=== PATIENT | female | born 1950 | race Caucasian/White ===

== ENCOUNTER 2016-12-08 19:00 | Emergency (ER) | payer MEDICARE, BC ==
[2016-12-08 19:18] VITALS: RESP 16
[2016-12-08 20:11] LABS: BASOPHILS % (AUTO) 1 % (0-3); EOSINOPHILS % (AUTO) 3 % (0-9); HEMATOCRIT 32 % (35-47); MEAN CORPUSCULAR HGB CONC 34.3 gm/dl (32.0-36.0); MEAN CORPUSCULAR VOLUME 98 fL (81-99); MONOCYTES % (AUTO) 5.4 % (0-12); NEUTROPHILS % (AUTO) 71.4 % (37-80)
[2016-12-08 20:13] VITALS: TEMP 97.6
[2016-12-08 20:33] LABS: ALBUMIN 3.1 gm/dl (3.4-5.0); ALT 39 IU/L (14-63); CALCIUM 8.4 mg/dl (8.5-10.1); GLOM FILT RATE 27 mL/min (>60); POTASSIUM 3.8 mMol/L (3.5-5.1); SODIUM 140 mMol/L (136-145); THYROID STIMULATING HORMONE 3.899 uIU/ml (0.358-3.740)
[2016-12-08] MEDS ORDERED: LABETALOL HYDROCHLORIDE 100 MG TAB PO SCH (20:45)
[2016-12-08 21:42] LABS: BILIRUBIN,URINE NEGATIVE (NEGATIVE); COLOR,URINE Yellow; GLUCOSE, URINE (UA) NEGATIVE (NEGATIVE); KETONES,URINE NEGATIVE (NEGATIVE); LEUKOCYTE ESTERASE ,URINE TRACE (NEGATIVE); NITRATE,URINE NEGATIVE (NEGATIVE); OCCULT BLOOD,URINE NEGATIVE (NEG-TRACE); UROBILINOGEN,URINE 0.2 (0.2-1.0 EU)
[2016-12-08 21:44] LABS: AMPHETAMINES NEGATIVE (NEGATIVE); METHADONE NEGATIVE (NEGATIVE); OPIATES(OP13) NEGATIVE (NEGATIVE); OXYCODONE(OXY) NEGATIVE (NEGATIVE); PROPOXYPHENE(PPX) NEGATIVE (NEGATIVE); TRICYCLIC ANTIDEPRESSANTS NEGATIVE (NEGATIVE)
[2016-12-08 21:51] LABS: APPEARANCE,URINE SLIGHTLY CLOUDY; RBC,URINE 0-1 (0-3AV/HPF)
[2016-12-08 22:06] VITALS: BP 130/77; PULSE 65; O2SAT 100
== END 2016-12-08 22:25 | disposition short-term general hospital (02) | DRG 880 ==
LOC: ED 19:00
DX: R45.851 Suicidal ideations (principal); N18.4 Chronic kidney disease, stage 4 (severe); F32.9 Major depressive disorder, single episode, unspecified; Z87.440 Personal history of urinary (tract) infections; E11.9 Type 2 diabetes mellitus without complications; R10.9 Unspecified abdominal pain; G89.29 Other chronic pain; Z59.8 Other problems related to housing and economic circumstances; Z79.4 Long term (current) use of insulin
CPT/HCPCS: 36415; 80053; 80305; 80307; 81001; 84443; 85025; 87077; 87088; 87186; 99284; 99285

== ENCOUNTER 2017-02-04 10:24 | Emergency (ER) | payer MEDICARE, BC ==
[2017-02-04] MEDS ORDERED: ASPIRIN 81 MG CHEWABLE CTB ONE (10:27)
[2017-02-04] MEDS ORDERED: ASPIRIN 81 MG CHEWABLE CTB PO STA (10:30)
[2017-02-04] MEDS ORDERED: NITROGLYCERIN 0.4 MG TAB SL ONE (10:34)
[2017-02-04] MEDS: NITROGLYCERIN 0.4 MG TAB SL PRN ×2 (10:35→11:06)
[2017-02-04] MEDS ORDERED: FENTANYL 100MCG/2ML SOL IV ONE (10:44)
[2017-02-04] MEDS ORDERED: SODIUM CHLORIDE 0.9% 1000 ML SOL IV ONE (10:44)
[2017-02-04] MEDS ORDERED: ALUMINUM/MAGNESIUM 30 ML SUS ONE (10:48)
[2017-02-04] MEDS ORDERED: LIDOCAINE HCL 2% (VISCOUS) 20 ML SOL ONE (10:48)
[2017-02-04 10:58] LABS: POTASSIUM 4.6 mMol/L (3.5-5.1)
[2017-02-04] MEDS: SODIUM CHLORIDE 0.9% FLUSH 10 ML SOL IV PRN ×2 (11:00→11:42)
[2017-02-04] MEDS ORDERED: FENTANYL 100MCG/2ML SOL ONE (11:04)
[2017-02-04 11:06] LABS: BASOPHILS % (AUTO) 0 % (0-3); EOSINOPHILS % (AUTO) 5 % (0-9); HEMATOCRIT 29 % (35-47); MEAN CORPUSCULAR HGB CONC 32.1 gm/dl (32.0-36.0); MEAN CORPUSCULAR VOLUME 98 fL (81-99); MONOCYTES % (AUTO) 5.4 % (0-12); NEUTROPHILS % (AUTO) 64.3 % (37-80)
[2017-02-04] MEDS ORDERED: HEPARIN PREMIX 25,000 U/250 ML SOL IV PRN (11:26)
[2017-02-04] MEDS ORDERED: HEPARIN SODIUM 5000 U/ML SOL IV ONE (11:26)
[2017-02-04] MEDS ORDERED: HEPARIN SODIUM 5000 U/ML SOL ONE (11:31)
[2017-02-04] MEDS ORDERED: LORAZEPAM 2 MG/ML SOL IV ONE (11:36)
[2017-02-04] MEDS ORDERED: LORAZEPAM 2 MG/ML SOL ONE (11:47)
[2017-02-04] MEDS ORDERED: SODIUM CHLORIDE 0.9% 1000ML 300 ML IV ONE (11:53)
[2017-02-04] MEDS ORDERED: SODIUM CHLORIDE 0.9% 1000ML 1,000 ML IV SCH (12:15)
[2017-02-04 12:41] VITALS: BP 102/46; PULSE 58; RESP 18; TEMP 97.8; O2SAT 96
[2017-02-11] MEDS ORDERED: ALUMINUM/MAGNESIUM 30 ML SUS PO ONE (10:50)
[2017-02-11] MEDS ORDERED: LIDOCAINE HCL 2% (VISCOUS) 20 ML SOL MT ONE (10:50)
== END 2017-02-04 12:51 | disposition short-term general hospital (02) | DRG 311 ==
LOC: ED 10:24
DX: I24.9 Acute ischemic heart disease, unspecified (principal); R06.00 Dyspnea, unspecified; Z86.2 Personal history of diseases of the blood and blood-forming organs and certain disorders involving the immune mechanism
CPT/HCPCS: 71010; 80053; 82550; 83880; 84484; 85025; 85610; 85730; 93005; 96365; 96374; 96375; 99284; 99285; J1644; J2060; J3010

== ENCOUNTER 2017-03-28 15:52 | Inpatient (IN) | payer MEDICARE, BC ==
[2017-03-28] MEDS ORDERED: SODIUM CHLORIDE 0.9% 500 ML 500 ML IV ONE (16:27)
[2017-03-28 16:42] LABS: BASOPHILS % (AUTO) 0 % (0-3); EOSINOPHILS % (AUTO) 0 % (0-9); HEMATOCRIT 29 % (35-47); MEAN CORPUSCULAR HGB CONC 32.6 gm/dl (32.0-36.0); MONOCYTES % (AUTO) 4.7 % (0-12)
[2017-03-28 16:46] LABS: MEAN CORPUSCULAR VOLUME 101 fL (81-99)
[2017-03-28 16:58] LABS: ALBUMIN 2.6 gm/dl (3.4-5.0); CALCIUM 7.6 mg/dl (8.5-10.1); POTASSIUM 3.9 mMol/L (3.5-5.1)
[2017-03-28 17:40] LABS: APPEARANCE,URINE CLOUDY; COLOR,URINE YELLOW; GLUCOSE, URINE (UA) NEGATIVE (NEGATIVE); KETONES,URINE NEGATIVE (NEGATIVE)
[2017-03-28 17:41] LABS: BILIRUBIN,URINE NEGATIVE (NEGATIVE); LEUKOCYTE ESTERASE ,URINE 3+ (NEGATIVE); NITRATE,URINE POSITIVE (NEGATIVE); OCCULT BLOOD,URINE TRACE INTACT (NEG-TRACE); UROBILINOGEN,URINE 0.2 (0.2-1.0 EU); WBC,URINE 100-120 (0-5AV/HPF)
[2017-03-28] MEDS ORDERED: AMPICILLIN 1 GM PDS 1 GM in SODIUM CHLORIDE 0.9% 100 ML 100 ML IV ONE (18:58)
[2017-03-28] MEDS ORDERED: SODIUM CHLORIDE 0.9% FLUSH 10 ML SOL IV PRN ×2 (20:30→20:53)
[2017-03-28] MEDS ORDERED: SODIUM CHLORIDE 0.9% 50 ML 25 ML IV PRN (20:50)
[2017-03-28] MEDS ORDERED: CEFAZOLIN (PREMIX) 1 GM 1 GM/50 ML SOL IV ONE (21:15)
[2017-03-28] MEDS ORDERED: CEFAZOLIN (PREMIX) 1 GM 1 GM/50 ML SOL IV SCH (21:15)
[2017-03-28] MEDS ORDERED: NITROGLYCERIN 0.4 MG TAB SL PRN (21:35)
[2017-03-28] MEDS ORDERED: SIMETHICONE 125 MG PO PRN (21:35)
[2017-03-28] MEDS ORDERED: ROPINIROLE HCL 1 MG TAB PO PRN (21:35)
[2017-03-28] MEDS ORDERED: LOPERAMIDE HYDROCHLORIDE 2 MG CAP PO PRN (21:35)
[2017-03-28] MEDS ORDERED: SODIUM CHLORIDE 0.9% 1000ML 1,000 ML IV SCH (22:30)
[2017-03-28] MEDS ORDERED: SUCRALFATE 1 GM TAB ONE (22:55)
[2017-03-28] MEDS: GABAPENTIN 100 MG CAP PO SCH (22:57)
[2017-03-28] MEDS: ATORVASTATIN 10 MG TAB PO SCH (22:59)
[2017-03-28] MEDS: INSULIN GLARGINE, RECOMBINAN 100 U/ML SOL SC SCH (23:00)
[2017-03-28] MEDS: TRAZODONE HYDROCHLORIDE 50 MG TAB PO SCH (23:00)
[2017-03-28] MEDS: RISPERIDONE 1 MG TAB PO SCH (23:02)
[2017-03-28] MEDS: ACETAMINOPHEN 325 MG PO PRN (23:04)
[2017-03-28] MEDS: SUCRALFATE 1 GM PO SCH (23:06)
[2017-03-29] MEDS: PANTOPRAZOLE SODIUM 40 MG ECT PO SCH (06:05)
[2017-03-29] MEDS ORDERED: LEVOTHYROXINE SODIUM PO SCH (07:00)
[2017-03-29 08:23] LABS: BASOPHILS % (AUTO) 1 % (0-3); EOSINOPHILS % (AUTO) 1 % (0-9); HEMATOCRIT 25 % (35-47); MONOCYTES % (AUTO) 6.7 % (0-12); NEUTROPHILS % (AUTO) 76.1 % (37-80)
[2017-03-29 08:25] LABS: MEAN CORPUSCULAR VOLUME 101 fL (81-99)
[2017-03-29 08:30] LABS: CALCIUM 7.4 mg/dl (8.5-10.1); POTASSIUM 3.9 mMol/L (3.5-5.1)
[2017-03-29] MEDS: ACETAMINOPHEN 325 MG PO PRN ×3 (08:53→19:44)
[2017-03-29] MEDS: GABAPENTIN 100 MG CAP PO SCH ×3 (08:53→21:32)
[2017-03-29] MEDS: FERROUS SULFATE 325 MG TAB PO SCH (08:53)
[2017-03-29] MEDS: SUCRALFATE 1 GM PO SCH (08:53)
[2017-03-29] MEDS: ASPIRIN 325 MG TAB PO SCH (08:53)
[2017-03-29] MEDS: ESCITALOPRAM 10 MG TAB PO SCH (08:54)
[2017-03-29] MEDS: CEFAZOLIN SODIUM 1 GM PDS IV SCH ×2 (08:54→21:31)
[2017-03-29] MEDS: LACTASE 3000 UNIT PO SCH (08:57)
[2017-03-29] MEDS ORDERED: SIMETHICONE 40 MG/0.6 ML SUS PO PRN (09:44)
[2017-03-29] MEDS: ENOXAPARIN 30 MG SOL SC SCH (09:49)
[2017-03-29] MEDS: METOPROLOL SUCCINATE 50 MG ER TAB PO SCH (10:32)
[2017-03-29] MEDS: SUCRALFATE 1 GM TAB PO SCH ×3 (11:48→21:32)
[2017-03-29] MEDS: LEVOTHYROXINE SODIUM 112 MCG TAB PO SCH (11:49)
[2017-03-29] MEDS: INSULIN GLARGINE, RECOMBINAN 100 U/ML SOL SC SCH (21:28)
[2017-03-29] MEDS: ATORVASTATIN 10 MG TAB PO SCH (21:32)
[2017-03-29] MEDS: TRAZODONE HYDROCHLORIDE 50 MG TAB PO SCH (21:32)
[2017-03-29] MEDS: RISPERIDONE 1 MG TAB PO SCH (21:35)
[2017-03-30] MEDS: ACETAMINOPHEN 325 MG PO PRN ×2 (06:42→19:35)
[2017-03-30] MEDS: LEVOTHYROXINE SODIUM 112 MCG TAB PO SCH (06:43)
[2017-03-30] MEDS: PANTOPRAZOLE SODIUM 40 MG ECT PO SCH (06:43)
[2017-03-30] MEDS: SODIUM CHLORIDE 0.9% FLUSH 10 ML SOL IV SCH ×3 (06:43→22:33)
[2017-03-30] MEDS: SUCRALFATE 1 GM TAB PO SCH ×4 (06:43→20:38)
[2017-03-30 07:18] LABS: POTASSIUM 3.8 mMol/L (3.5-5.1)
[2017-03-30 07:33] LABS: BASOPHILS % (AUTO) 0 % (0-3); EOSINOPHILS % (AUTO) 2 % (0-9); HEMATOCRIT 28 % (35-47); MEAN CORPUSCULAR HGB CONC 33.7 gm/dl (32.0-36.0); MONOCYTES % (AUTO) 6.2 % (0-12); NEUTROPHILS % (AUTO) 75.2 % (37-80)
[2017-03-30 07:41] LABS: MEAN CORPUSCULAR VOLUME 101 fL (81-99)
[2017-03-30] MEDS ORDERED: AMOXIL/CLAVULANATE 400/5 ML PDR PO SCH (08:00)
[2017-03-30 08:02] LABS: ANISOCYTOSIS MOD AMT
[2017-03-30] MEDS: ENOXAPARIN 30 MG SOL SC SCH (08:07)
[2017-03-30] MEDS: FERROUS SULFATE 325 MG TAB PO SCH (09:02)
[2017-03-30] MEDS: ASPIRIN 325 MG TAB PO SCH (09:02)
[2017-03-30] MEDS: LACTASE 3000 UNIT PO SCH (09:02)
[2017-03-30] MEDS: ESCITALOPRAM 10 MG TAB PO SCH (09:03)
[2017-03-30] MEDS: METOPROLOL SUCCINATE 50 MG ER TAB PO SCH (09:04)
[2017-03-30] MEDS: GABAPENTIN 100 MG CAP PO SCH ×3 (09:04→20:41)
[2017-03-30] MEDS: ATORVASTATIN 10 MG TAB PO SCH (20:39)
[2017-03-30] MEDS: TRAZODONE HYDROCHLORIDE 50 MG TAB PO SCH (20:39)
[2017-03-30] MEDS: INSULIN GLARGINE, RECOMBINAN 100 U/ML SOL SC SCH (20:51)
[2017-03-30] MEDS: RISPERIDONE 1 MG TAB PO SCH (20:56)
[2017-03-30] MEDS ORDERED: CIPROFLOXACIN HCL 500 MG TAB PO SCH (21:00)
[2017-03-31] MEDS: ACETAMINOPHEN 325 MG PO PRN (03:56)
[2017-03-31] MEDS: SODIUM CHLORIDE 0.9% FLUSH 10 ML SOL IV SCH (06:32)
[2017-03-31] MEDS: PANTOPRAZOLE SODIUM 40 MG ECT PO SCH (06:32)
[2017-03-31] MEDS: SUCRALFATE 1 GM TAB PO SCH ×2 (06:32→12:45)
[2017-03-31] MEDS: LEVOTHYROXINE SODIUM 112 MCG TAB PO SCH (06:32)
[2017-03-31 08:33] VITALS: BP 139/66; PULSE 56; RESP 18; TEMP 98.8; O2SAT 95
[2017-03-31] MEDS: ENOXAPARIN 30 MG SOL SC SCH (08:38)
[2017-03-31] MEDS: GABAPENTIN 100 MG CAP PO SCH (08:39)
[2017-03-31] MEDS: METOPROLOL SUCCINATE 50 MG ER TAB PO SCH (08:39)
[2017-03-31] MEDS: ASPIRIN 325 MG TAB PO SCH (08:40)
[2017-03-31] MEDS: FERROUS SULFATE 325 MG TAB PO SCH (08:40)
[2017-03-31] MEDS: ESCITALOPRAM 10 MG TAB PO SCH (08:40)
[2017-03-31] MEDS: LACTASE 3000 UNIT PO SCH (08:40)
[2017-03-31 09:25] LABS: BASOPHILS % (AUTO) 1 % (0-3); EOSINOPHILS % (AUTO) 3 % (0-9); HEMATOCRIT 27 % (35-47); MEAN CORPUSCULAR HGB CONC 33.1 gm/dl (32.0-36.0); MONOCYTES % (AUTO) 7.8 % (0-12); NEUTROPHILS % (AUTO) 69.4 % (37-80)
[2017-03-31 09:30] LABS: CALCIUM 8.1 mg/dl (8.5-10.1); POTASSIUM 4.1 mMol/L (3.5-5.1)
[2017-03-31 09:37] LABS: MEAN CORPUSCULAR VOLUME 100 fL (81-99)
== END 2017-03-31 12:55 | disposition home health service (06) | DRG 690 ==
LOC: ED 15:52 → ACUTE CARE 18:48 → UNDOADMIN 18:48 → ACUTE CARE 19:15
PROVIDERS: ADMIT Family Medicine; ATTEND Family Medicine
PROC: F01ZDFZ Gait and/or Balance Assessment using Assistive, Adaptive, Supportive or Protective Equipment (ICD-10-PCS; principal; 2017-03-30)
PROC: F01ZBZZ Bed Mobility Assessment (ICD-10-PCS; 2017-03-30)
PROC: F01ZCZZ Transfer Assessment (ICD-10-PCS; 2017-03-30)
DX: N10 Acute pyelonephritis (principal); I10 Essential (primary) hypertension; E11.9 Type 2 diabetes mellitus without complications; N18.9 Chronic kidney disease, unspecified; B00.1 Herpesviral vesicular dermatitis
CPT/HCPCS: 36415; 80048; 80053; 81001; 82962; 85025; 87040; 87077; 87088; 87186; 94760; 96365; 96366; 99221; 99283; J0690; J1817; J1650

== ENCOUNTER 2017-10-29 07:50 | Day surgery (SDC) | payer MEDICARE, BC ==
[2017-10-29] MEDS ORDERED: BUPIVACAINE/EPI 0.5% 10 ML SOL INFIL ONE ×2 (08:00)
[2017-10-29] MEDS ORDERED: PROPOFOL 500 MG/50 ML EMU IV ONE (09:04)
[2017-10-29] MEDS ORDERED: LIDOCAINE HCL 1% MPF SOL ONE (09:04)
[2017-10-29] MEDS ORDERED: MIDAZOLAM 2 MG/2 ML SOL ONE (09:04)
[2017-10-29] MEDS ORDERED: CEFAZOLIN SODIUM 1 GM PDS ONE (09:13)
[2017-10-29] MEDS ORDERED: HEPARIN SODIUM 5000 U/ML SOL ONE (09:16)
[2017-10-29] MEDS ORDERED: FENTANYL 100MCG/2ML SOL ONE (09:22)
[2017-10-29 11:33] VITALS: RESP 16
[2017-10-29 12:30] VITALS: BP 142/62; PULSE 56; TEMP 98.9; O2SAT 94
[2017-11-02] MEDS ORDERED: HEPARIN SODIUM IR SCH (15:15)
== END 2017-10-29 12:35 | disposition home or self-care (01) | DRG 684 ==
LOC: SURG 07:50
PROVIDERS: ATTEND Surgery
DX: N18.6 End stage renal disease (principal); E11.9 Type 2 diabetes mellitus without complications; Z79.4 Long term (current) use of insulin
CPT/HCPCS: 36415; 82962; 84132; J0690; J1644; J2250; J3010; J2001; J2704

== ENCOUNTER 2018-06-20 11:04 | Emergency (ER) | payer MEDICARE, BC ==
[2018-06-20 11:07] VITALS: TEMP 98.3
[2018-06-20 11:46] LABS: ALBUMIN 2.5 gm/dl (3.4-5.0); BILIRUBIN,TOTAL 0.4 mg/dl (0.2-1.0); CARBON DIOXIDE 21.9 mEq/L (21-32); CREATININE 6.91 mg/dl (0.60-1.00); POTASSIUM 3.7 mMol/L (3.5-5.1); TOTAL PROTEIN 5.7 gm/dl (6.4-8.2)
[2018-06-20 11:55] LABS: BASOPHILS % (AUTO) 0 % (0-3); EOSINOPHILS % (AUTO) 1 % (0-9); HEMATOCRIT 32 % (35-47); HEMOGLOBIN 9.7 gm/dl (12.0-15.5); LYMPHOCYTES % (AUTO) 6.1 % (10-50); MEAN CORPUSCULAR HGB CONC 30.7 gm/dl (32.0-36.0); MONOCYTES % (AUTO) 5.1 % (0-12); NEUTROPHILS % (AUTO) 87.5 % (37-80)
[2018-06-20 11:56] LABS: MEAN CORPUSCULAR VOLUME 111 fL (81-99)
[2018-06-20 12:09] LABS: APPEARANCE,URINE Clear; BILIRUBIN,URINE NEGATIVE (NEGATIVE); COLOR,URINE Yellow; GLUCOSE, URINE (UA) TRACE (NEGATIVE); KETONES,URINE NEGATIVE (NEGATIVE); LEUKOCYTE ESTERASE ,URINE 1+ (NEGATIVE); NITRATE,URINE NEGATIVE (NEGATIVE); OCCULT BLOOD,URINE TRACE INTACT (NEG-TRACE); UROBILINOGEN,URINE 0.2 (0.2-1.0 EU)
[2018-06-20 12:23] LABS: BACTERIA 1+ (< 1+); CRYSTALS NEGATIVE (0-3 AVE/HPF); RBC,URINE 0-2 (0-3AV/HPF)
[2018-06-20] MEDS: LEVOFLOXACIN 500 MG TAB PO ONE ×2 (12:25)
[2018-06-20] MEDS ORDERED: LEVOFLOXACIN 500 MG TAB ONE (12:27)
[2018-06-20] MEDS ORDERED: LEVOFLOXACIN 25 MG/ML 500 MG in SODIUM CHLORIDE 0.9% 100 ML 100 ML IV ONE (12:30)
[2018-06-20] MEDS ORDERED: LEVOFLOXACIN 25 MG/ML SOL IV ONE (12:30)
[2018-06-20 12:46] VITALS: RESP 18
[2018-06-20 12:47] VITALS: BP 107/73; PULSE 83; O2SAT 92
== END 2018-06-20 14:00 | disposition home or self-care (01) | DRG 690 ==
LOC: ED 11:04
DX: N30.00 Acute cystitis without hematuria (principal)
CPT/HCPCS: 36415; 80053; 81001; 85025; 87077; 87088; 87186; 96365; 99283; 99284; J1956; A9270-GY

== ENCOUNTER 2018-12-13 07:16 | Day surgery (SDC) | payer MEDICARE, BC ==
[2018-12-13] MEDS ORDERED: ACETAZOLAMIDE 250 MG PO ONE (07:28)
[2018-12-13] MEDS: TETRACAINE HCL 0.5 % 1 DROP SOL ONE ×3 (07:49→08:56)
[2018-12-13] MEDS: PHENYLEPHRINE HCL 10% OPHTHAL SOL ONE ×2 (07:50→08:04)
[2018-12-13] MEDS: CYCLOPENTOLATE 1% SOL ONE ×2 (07:51→08:05)
[2018-12-13] MEDS: KETOROLAC 0.5% OPTH 60 DROP SOL ONE ×2 (07:52→08:05)
[2018-12-13 07:56] VITALS: RESP 16
[2018-12-13] MEDS ORDERED: FENTANYL 100MCG/2ML SOL ONE (08:24)
[2018-12-13] MEDS ORDERED: MIDAZOLAM 2 MG/2 ML SOL ONE (08:24)
[2018-12-13] MEDS ORDERED: IMPRIMIS ONE (08:49)
[2018-12-13] MEDS ORDERED: BSS 500 ML 500 ML IR ONE (08:49)
[2018-12-13] MEDS ORDERED: POVIDONE IODINE 5% SOL ONE (08:49)
[2018-12-13] MEDS ORDERED: LIDOCAINE HCL 1% MPF 30 SOL ONE ×2 (08:49→09:25)
[2018-12-13 09:28] VITALS: BP 133/71; PULSE 64; TEMP 98; O2SAT 97
== END 2018-12-13 09:49 | disposition home or self-care (01) | DRG 125 ==
LOC: SURG 07:16
PROVIDERS: ATTEND Ophthalmology
DX: H25.89 Other age-related cataract (principal); L97.822 Non-pressure chronic ulcer of other part of left lower leg with fat layer exposed; E11.9 Type 2 diabetes mellitus without complications; M79.671 Pain in right foot; M81.0 Age-related osteoporosis without current pathological fracture; M20.11 Hallux valgus (acquired), right foot; M21.611 Bunion of right foot
CPT/HCPCS: 73630; 82962; 97597; 99211; J2250; J3010; A9270-GY; J2001

== ENCOUNTER 2019-04-15 16:35 | Emergency (ER) | payer MEDICARE, BC | END 2019-04-15 18:03 | disposition home or self-care (01) | LOC: ED 16:35 ==